=== PATIENT | male | born 1960 | race Caucasian/White ===

== ENCOUNTER 2016-12-21 02:31 | Emergency (ER) | payer OTHER ==
[~2016-12-21] VITALS: Ht 175.3 cm; Wt 121.7 kg
[2016-12-21 03:31] LABS: HEMATOCRIT 40.5 % (38.0-50.0); MCH 29.6 PG (29.0-34.0); MCHC 34.3 G/DL (30.0-36.0); MCV 86.2 FL (86-99); MEAN PLAT.VOLUME 11.9 uM^3 (9.0-12.4); PLATELET COUNT 106 K/uL (156-360); RBC DIS.WIDTH-CV 13.1 % (11.8-14.6); RBC DIS.WIDTH-SD 40.8 % (39-53); WHITE BLOOD COUNT 4.3 K/uL (4.1-10.2)
[2016-12-21 03:49] LABS: CHLORIDE 106 mEq/L (99-109); POTASSIUM 4.7 mEq/L (3.7-5.4); SODIUM 140 mEq/L (136-147)
[2016-12-21 03:51] LABS: GLUCOSE 115 mg/dL (70-99)
[2016-12-21 03:52] LABS: ANION GAP 11 MEQ/L (2-14)
[2016-12-21 03:55] LABS: GFR ESTIMATE (CALCULATED) > 59 mL/min/
[2016-12-21 03:56] LABS: UREA NITROGEN (BUN) 12 mg/dL (9-23)
[2016-12-21 03:58] LABS: TROP-I INTERPRETATION NEGATIVE; TROPONIN-I < 0.01 ng/mL (0.0-0.30)
[2016-12-21 04:07] LABS: INTER. NORMALIZED RATIO 1.1; PROTHROMBIN TIME 12.1 SEC (10.2-12.9)
[2016-12-21 04:09] LABS: PTT 33.5 SEC (25-37)
[2016-12-21 05:47] LABS: TROP-I INTERPRETATION NEGATIVE; TROPONIN-I < 0.01 ng/mL (0.0-0.30)
[2016-12-21 08:46] VITALS: BP 110/54
== END 2016-12-21 09:27 | disposition left against medical advice (07) ==
LOC: EME 02:31
PROVIDERS: Emergency Medicine
DX: R07.9 Chest pain, unspecified (principal); R11.0 Nausea; Z95.5 Presence of coronary angioplasty implant and graft; Z79.02 Long term (current) use of antithrombotics/antiplatelets; Z87.891 Personal history of nicotine dependence
CPT/HCPCS: 71020; 80048; 84484; 85027; 85610; 85730; 93005; 99281; 99285

== ENCOUNTER 2016-12-21 09:23 | Emergency (ER) | payer OTHER ==
[~2016-12-21] VITALS: Ht 175.3 cm; Wt 120.5 kg
[2016-12-21 10:19] LABS: ADD MIUA? YES; BILIRUBIN NEGATIVE; BLOOD SMALL; COLOR YELLOW ((YELLOW)); GLUCOSE (STRIP) NEGATIVE; KETONES NEGATIVE; LEUKOCYTES NEGATIVE; NITRITE NEGATIVE; PROTEIN (STRIP) 30; SPECIFIC GRAVITY 1.025 (1.000-1.030)
[2016-12-21 10:26] LABS: BACTERIA RARE /HPF; EPITHELIAL CELLS NONE SEEN /HPF; MUCUS 1+ /LPF; UCUL ADDED? NO; WHITE BLOOD CELLS 0-5 /HPF (0-5)
[2016-12-21 10:27] LABS: TROP-I INTERPRETATION NEGATIVE; TROPONIN-I < 0.01 ng/mL (0.0-0.30)
[2016-12-21 13:08] VITALS: BP 115/66
== END 2016-12-21 13:10 | disposition home or self-care (01) ==
LOC: EME 09:23
PROVIDERS: Emergency Medicine
DX: R07.9 Chest pain, unspecified (principal); I70.0 Atherosclerosis of aorta; I25.10 Atherosclerotic heart disease of native coronary artery without angina pectoris; I25.2 Old myocardial infarction; I10 Essential (primary) hypertension; E78.5 Hyperlipidemia, unspecified; E11.9 Type 2 diabetes mellitus without complications; Z95.1 Presence of aortocoronary bypass graft; Z95.5 Presence of coronary angioplasty implant and graft; Z82.49 Family history of ischemic heart disease and other diseases of the circulatory system; Z79.84 Long term (current) use of oral hypoglycemic drugs; Z79.02 Long term (current) use of antithrombotics/antiplatelets; Z79.82 Long term (current) use of aspirin; Z87.891 Personal history of nicotine dependence
CPT/HCPCS: 81003; 84484; 93005; 99281; 99285